=== PATIENT | female | born 1970 | race American Indian/Alaskan Native ===

== ENCOUNTER 2017-06-05 06:34 | Day surgery (SDC) | payer BC, OTHER ==
--- NOTE | 2017-06-03 10:13 | Anesthesia Consultation ---
Anesthesia Consult and Med Hx Date of service: 06/05/17 - Airway Anesthetic Teeth Evaluation: Good, Crowns ROM Head & Neck: Adequate Mental/Hyoid Distance: Adequate Mallampati Class: Class II Intubation Access Assessment: Good - Pulmonary Exam CTA: Yes - Cardiac Exam Cardiac Exam: RRR - Pre-Operative Health Status ASA Pre-Surgery Classification: ASA2 Proposed Anesthetic Plan: General - Cardiovascular System Hx Hypertension: Yes (since age 29) Hx Heart Murmur: Yes - Central Nervous System Hx Psychiatric Problems: No - Hematic Hx Anemia: Yes (past hx) - Other Systems Hx Cancer: No - Additional Comments Anesthesia Medical History Comments: peripartum diastolic CHF- cardilogy last visit notes appreciated. ECHO requested. diet controlled DM. HLD
[2017-06-03 10:18] LABS: Mean Corpuscular HGB Conc 30 % (30-34); Mean Corpuscular Volume 85 fl (79-97); Platelet Count 257 K/mm3 (140-440); Red Blood Count 5.03 M/mm3 (3.65-5.03); Red Cell Distribution Width 13.9 % (13.2-15.2)
[2017-06-03 10:19] LABS: Hematocrit 42.9 % (30.3-42.9); Mean Corpuscular Hemoglobin 26 pg (28-32)
[2017-06-03 10:21] LABS: BUN/Creatinine Ratio 14; Blood Urea Nitrogen 10 mg/dL (7-17); Calcium 9.1 mg/dL (8.4-10.2); Hemolysis Index 24
[2017-06-05] MEDS ORDERED: NACL BACTERIOSTATIC INFILTRATI ONE (06:44)
--- NOTE | 2017-06-05 07:43 | Anesthesia Day of Surgery ---
Anesthesia Day of Surgery - Day of Surgery Patient Examined: Yes Patient H&P Reviewed: Yes Patient is NPO: Yes Beta Blockers: No Cardiac Clearance: Yes (Pt followed by cast iron drain pipe layer, annual EKGs) Pulmonary Clearance: Yes Olvin's Test: N/A
[2017-06-05] MEDS ORDERED: XYLOCAINE MPF 2% ONE (07:47)
[2017-06-05] MEDS ORDERED: DILAUDID ONE (07:47)
[2017-06-05] MEDS ORDERED: DIPRIVAN 10 MG/ML IV ONE (07:47)
[2017-06-05] MEDS ORDERED: PEPCID IV NR (08:00)
[2017-06-05] MEDS ORDERED: LACTATED RINGERS 1,000 ML IV SCH (08:00)
[2017-06-05] MEDS ORDERED: VERSED IV NR (08:00)
--- NOTE | 2017-06-05 08:36 | Short Stay Summary ---
Short Stay Documentation Date of service: 06/05/17 Narrative H&P: Patient is a 46 year old who presents for treatment of heavy and painful mense that have been going on for some years - History Principal diagnosis: Menorrhagia H&P: obtained from office Past Medical History: diabetes, hypertension Past Surgical History: , Other (gastric bypass) Social history: - Allergies and Medications Current Medications: Allergies methyldopa [From Aldomet] Allergy (Verified 10/27/12 10:55) Hives Sulfa (Sulfonamide Antibiotics) Allergy (Verified 10/27/12 10:55) Hives Home Medications Medication Instructions Recorded Confirmed Last Taken Type AtorvaSTATin [Lipitor] 40 mg PO QHS 05/31/17 06/05/17 06/04/17 History Cetirizine HCl [ZyrTEC] 10 mg PO DAILY 05/31/17 06/05/17 06/04/17 History Fluticasone [Flonase] 2 spray IH DAILY 05/31/17 06/05/17 06/04/17 History Multivitamin [Multiple Vitamins] 1 each PO DAILY 05/31/17 06/05/17 06/04/17 History Valsartan/Hydrochlorothiazide 1 tab PO DAILY 05/31/17 06/05/17 06/05/17 05:30 History [Valsartan-Hctz 160-12.5 mg Tab] Calcium Carbonate [Calcium] 500 mg PO QDAY 06/05/17 06/05/17 06/04/17 History Active Medications Famotidine (Pepcid) 20 mg IV PREOP NR Stop: 06/05/17 10:00 Last Admin: 06/05/17 07:41 Dose: 20 mg Lactated Ringer's (Lactated Ringers) 1,000 mls @ 75 mls/hr IV DIRECT LAINE Last Admin: 06/05/17 07:35 Dose: 75 mls/hr Midazolam HCl (Versed) 2 mg IV PREOP NR Stop: 06/05/17 23:59 Last Admin: 06/05/17 07:40 Dose: 2 mg - Physical exam General appearance: no acute distress Integumentary: no rash HEENT: Atraumatic Lungs: Clear to auscultation, Normal air movement Breasts: deferred Heart: Regular rate, Normal S1, Normal S2 Gastrointestinal: normal, normoactive bowel sounds Female Genitourinary: deferred Rectal Exam: deferred Extremities: No edema - Brief post op/procedure progress note Date of procedure: 06/05/17 Pre-op diagnosis: Menorrhagia Post-op diagnosis: same Procedure: Novasure Endometrial Ablation Anesthesia: MAC Findings: Enlarged and slightly irregular uterine cavity Surgeon: ENE CHRISTIANSON Estimated blood loss: minimal Pathology: list (endometrial curretings) Specimen disposition: to lab Condition: stable - Hospital course Hospital course: unremarkable - Disposition Condition at discharge: Good Disposition: DC- TO HOME OR SELFCARE Short Stay Discharge Plan Activity: advance as tolerated Weight Bearing Status: Weight Bear as Tolerated Diet: regular Follow up with: ENE CHRISTIANSON MD [Staff Physician] - 14 Days Prescriptions: HYDROcodone/APAP 7.5-325 [Jamul 7.5/325] 1 each PO Q6HR PRN #30 tablet PRN Reason: Pain Ibuprofen 800 mg PO Q8HR #30 tablet
[2017-06-05] MEDS ORDERED: MARCAINE 0.25% INFILTRATI ONE ×2 (08:45→09:00)
[2017-06-05] MEDS ORDERED: NACL 0.9% IR ONE (08:45)
[2017-06-05] MEDS ORDERED: ANCEF/STERILE WATER 2 GM/20 ML IV NR (09:00)
[2017-06-05] MEDS ORDERED: ANCEF/STERILE WATER 2 GM/20 ML 2 GM/20 ML SYRINGE IV NR (09:00)
[2017-06-05] MEDS ORDERED: ZOFRAN ONE (09:28)
[2017-06-05] MEDS ORDERED: TORADOL ONE (09:28)
[2017-06-05] MEDS ORDERED: DILAUDID IV PRN (09:39)
[2017-06-05] MEDS ORDERED: PERCOCET 5/325 PO PRN (09:39)
[2017-06-05] MEDS ORDERED: TORADOL IV PRN (09:39)
[2017-06-05] MEDS ORDERED: ZOFRAN IV PRN (09:39)
[2017-06-05] MEDS ORDERED: DEMEROL ONE (10:04)
[2017-06-05] MEDS ORDERED: DEMEROL IV PRN (10:08)
[2017-06-05 11:10] VITALS: BP 131/71
--- NOTE | 2017-06-05 11:53 | Post Anesthesia Evaluation ---
- Post Anesthesia Evaluation Patient Participated: Yes Airway Patent: Yes Stable Respiratory Function: Yes Nausea/Vomiting: No Temp > 96.8F: Yes Pain Manageable: Yes Adequeate Hydration: Yes Anesthesia Complications: No Block Receding Appropriately: Not Applicable Patient on Ventilator: No
--- NOTE | 2017-06-11 17:18 | Operative Report ---
Operative Report Operative Report: Preoperative diagnosis: Premenopausal menorrhagia Postoperative diagnosis: Same Procedure: NovaSure endometrial ablation Surgeon: Dr. Corazon Thomas Anesthesia: MAC Complications: None Specimens: None EBL: Minimal Urine output: 150 mL clear Procedure: The patient was taken to the OR with IV running and in place. She was given adequate anesthesia without difficulty. She was placed in the dorsal lithotomy position. She was then prepped and draped in the normal sterile fashion. Attention was turned to the patient's vagina. Bladder was drained of approximately 150 mL of clear yellow urine. A speculum was placed in the patient's vagina. The cervix was visualized and grasped with a single-tooth tenaculum. The cervix was gently dilated up to approximately 10 mm. Following this the hysteroscope was introduced into the uterine cavity. There was no obvious pathology. NovaSure ablation was then performed according to speech language pathologist prn's instructions. The length of the cavity was 6 cm, the width was 4.3 cm The cycle lasted 70 seconds. Once the ablation device was removed the hysteroscope was reintroduced. There appeared to be a good result with maximum amount of burn point all instruments removed from the patient's vagina. She was then awakened and taken to recovery in stable condition. The sponge and instrument counts were correct 2.
== END 2017-06-05 11:56 | disposition home or self-care (01) ==
LOC: OR 06:34
PROVIDERS: ATTEND Obstetrics & Gynecology
DX: N92.4 Excessive bleeding in the premenopausal period (principal); I10 Essential (primary) hypertension; E11.9 Type 2 diabetes mellitus without complications; E78.5 Hyperlipidemia, unspecified; Z88.2 Allergy status to sulfonamides; Z79.899 Other long term (current) drug therapy; D64.9 Anemia, unspecified
CPT/HCPCS: 36415; 58563; 80048; 81025; 85025; 88305; A4217; J0690; J1170; J1885; J2175; J2250; J2405; J2704; J7120